=== PATIENT | male | born 1940 | race Caucasian/White ===

== ENCOUNTER 2021-01-29 12:22 | Emergency (ER) | payer OTHER ==
[~2021-01-29] VITALS: Ht 177.8 cm; Wt 54.4 kg
[2021-01-29] MEDS: ETOMIDATE (2MG/ML) 20ML VIAL IV ONE ×4 (11:42→12:42)
[2021-01-29] MEDS: SUCCINYLCHOLINE CHLORIDE 20 MG/ML 10ML VIAL IV ONE ×4 (11:43→12:43)
[2021-01-29] MEDS: MIDAZOLAM DRIP 50 mg/50mL 50 ML IV ONE ×2 (11:45→12:45)
[2021-01-29] MEDS: MIDAZOLAM DRIP 50 mg/50mL 50 ML IV SCH ×2 (11:45→12:45)
[2021-01-29] MEDS ORDERED: SODIUM CHLORIDE 0.9% 500 ML IVB ONE (12:30)
[2021-01-29] MEDS ORDERED: NOREPINEPHRINE 8 MG/250ML KIT 250 ML IV ONE (12:41)
[2021-01-29 12:45] VITALS: BP 106/65
[2021-01-29] MEDS ORDERED: fentaNYL Drip 2500mCg/250mlNS 250 ML IV SCH (12:45)
[2021-01-29] MEDS ORDERED: NOREPINEPHRINE 8 MG/250ML KIT 250 ML IV SCH (12:45)
[2021-01-29 13:35] LABS: Basophils # (auto) 0 10 ^3/uL (0-0.2); Basophils % (auto) 0.1 % (0.0-2.0); Eosinophils # (auto) 0 10 ^3/uL (0-0.8); Hematocrit 40.1 % (41.0-53.0); Lymphocytes # (auto) 0.9 10 ^3/uL (0.4-5.4); Lymphocytes % (auto) 4.6 % (10.0-50.0); Mean Corpuscular Hemoglobin 30.9 pg (28.0-32.0); Mean Corpuscular Hgb Conc. 32.4 g/dL (32.0-36.0); Mean Corpuscular Volume 95.2 fL (80.0-100.0); Monocytes # (auto) 0.6 10 ^3/uL (0-1.3); Monocytes % (auto) 3.1 % (0.0-12.0); Neutrophils # (auto) 17.7 10 ^3/uL (1.6-8.6); Neutrophils % (auto) 92.2 % (37.0-80.0); Red Blood Cells 4.21 10^6/uL (4.5-5.90); Red Cell Distribution Width 15.6 % (11.8-14.3); White Blood Cell 19.2 10^3/uL (4.4-10.8)
[2021-01-29 13:54] LABS: Urine Bacteria NONE SEEN /hpf (None Seen); Urine Blood 2+ /uL (Negative); Urine Hyaline Cast FEW /lpf (0 - 2); Urine Mucus FEW (None Seen); Urine Specific Gravity 1.027 (1.001-1.035); Urine WBC 49 /hpf (0 - 3)
[2021-01-29 14:05] LABS: Lactic Acid w/Reflex 3.7 mmol/L (0.4-2.0)
[2021-01-29 14:08] LABS: Chloride 134 mmol/L (98-107); Potassium 3.8 mmol/L (3.5-5.1)
[2021-01-29 14:25] LABS: Alanine Aminotransferase < 6 U/L (16-61); Alkaline Phosphatase 134 U/L (45-117); Anion Gap 7 (5-15); Aspartate Aminotransferase 15 U/L (15-37); BUN/Creatinine Ratio 27.6; Bilirubin, Total 0.8 mg/dL (0.2-1.0); Blood Urea Nitrogen 50 mg/dL (7-18); Calcium 9.3 mg/dL (8.5-10.1); Carbon Dioxide 23 mmol/L (21-32); GFR African American 47 mL/min; GFR Non-African American 39 mL/min; Glucose 139 mg/dL (74-106); Total Protein 6.9 g/dL (6.4-8.2)
[2021-01-29 14:35] VITALS: BP 64/38
[2021-01-29 14:45] LABS: Sodium 164 mmol/L (136-145)
[2021-01-29 14:58] LABS: Magnesium 2.4 mg/dL (1.6-2.6)
[2021-01-29] MEDS ORDERED: SOD CHL 0.45% 1,000 ML IV SCH (15:15)
[2021-01-29] MEDS ORDERED: MORPHINE SULF INJ 2 MG/ML SYRINGE 1ML IV PRN (15:15)
[2021-01-29] MEDS ORDERED: ONDANSETRON HCL 4 MG/2 ML VIAL IV PRN (15:15)
[2021-01-29] MEDS ORDERED: ACETAMINOPHEN 500 MG TAB PO PRN (15:15)
[2021-01-29] MEDS ORDERED: cefTRIAXone 1GM/50ML D5W 50 ML IV SCH (15:37)
[2021-01-29 16:04] VITALS: BP 109/79
[2021-01-29] MEDS ORDERED: AZITHROMYCIN 500MG/ 250ML 250 ML IV SCH (17:00)
[2021-01-29] MEDS ORDERED: PHENYLEPHRINE INJ 40 MG in SODIUM CHL 0.9% 246 ML IV SCH (17:00)
[2021-01-29 17:54] VITALS: BP 96/64
[2021-01-29] MEDS ORDERED: ALBUTEROL SULF 2.5 MG/0.5ML(0.5%) NEB SOLN NEB SCH (18:00)
[2021-01-29] MEDS ORDERED: FREE WATER GT SCH (18:00)
[2021-01-29] MEDS ORDERED: IPRATROPIUM BROM 0.5 MG/2.5ML INH SOL NEB SCH (18:00)
[2021-01-29] MEDS ORDERED: ATORVASTATIN 20 MG TAB PO SCH (22:00)
[2021-01-29] MEDS ORDERED: CLINDAMYCIN 300MG IV 50 ML IV SCH (22:00)
[2021-01-29] MEDS ORDERED: BUDESONIDE (INHALATION) 0.5 MG/2 ML NEB NEB SCH (22:00)
[2021-01-30] MEDS ORDERED: ASPirin-EC 81 mg tab PO SCH (10:00)
== END 2021-01-29 18:47 | disposition short-term general hospital (02) ==
LOC: EDBD 12:22 → ER 12:22
DX: R41.82 Altered mental status, unspecified (principal); N39.0 Urinary tract infection, site not specified; J96.00 Acute respiratory failure, unspecified whether with hypoxia or hypercapnia; J69.0 Pneumonitis due to inhalation of food and vomit; Z20.822 Contact with and (suspected) exposure to COVID-19
CPT/HCPCS: 31500; 36415; 36556; 36600; 70450; 71045; 80053; 81001; 82805; 83605; 83735; 84484; 85025; 86141; 87040; 87070; 87077; 87186; 87205; 87426; 93005; 94002; 96365; 96367; 96368; 99291; C9803; J0330; J0456; J0696; J2250; J2370; J7050; U0003